=== PATIENT | male | born 1930 | race Caucasian/White ===

== ENCOUNTER → 2017-03-09 12:58 | Outpatient (CLI) | payer MEDICARE, OTHER ==
[2016-09-01 12:35] VITALS: BMI 38.7
[~2017-03-09 12:58] MED LIST: ALDACTONE50 MG PO; ASPIRIN325 MG PO; CARDIZEM CD240 MG PO; COREG 3.1253.125 MG PO; DIABETA5 MG PO; GLUCOPHAGE500 MG PO; JANUMET 50-1,001 TAB PO; LASIX40 MG PO; LISINOPRIL5 MG PO; MUCINEX600 MG; MUCINEX600 MG PO; NITROSTAT0.4 MG SL; PLAVIX75 MG PO
== END | disposition home or self-care (01) ==
LOC: D.US 12:58
DX: I65.23 Occlusion and stenosis of bilateral carotid arteries (principal)

== ENCOUNTER 2017-07-16 05:09 | Day surgery (SDC) | payer MEDICARE, OTHER | END 2017-07-16 10:20 | disposition home or self-care (01) | LOC: D.OPS 05:09 | DX: Z45.010 Encounter for checking and testing of cardiac pacemaker pulse generator [battery] (principal); I42.9 Cardiomyopathy, unspecified; I49.5 Sick sinus syndrome; E11.9 Type 2 diabetes mellitus without complications; I11.0 Hypertensive heart disease with heart failure; I50.9 Heart failure, unspecified; Z01.812 Encounter for preprocedural laboratory examination ==